=== PATIENT | male | born 1960 | race Caucasian/White ===

== ENCOUNTER → 2021-02-11 08:57 | Outpatient (CLI) | payer BC, SELFPAY ==
[2021-02-11 10:44] LABS: Magnesium 2.4 mg/dL (1.6-2.6)
--- NOTE | 2021-02-11 12:35 | HP.PCM_ITS ---
History and Physical History and Physical [facility], [place] Patient Name: Mustapha Lawson : 1960 From: DOROTEO SULLIVAN PA-C DATE OF SURGERY: 03/06/2021 SCHEDULED PROCEDURE: right total hip arthroplasty HISTORY OF PRESENT ILLNESS: Preoperative history and physical exam was performed on February 11, 2021. This is a 61-year-old male who has been having ongoing pain in the right hip for over 2 years. Pain can reach as high as an 8/10. Pain is been constant, aching, sharp, stabbing. Pain is increased with going up and down stairs and walking. Patient does have start up pain. Pain is located in the right buttock, lateral hip, groin and anterior thigh. An ice any numbness and tingling. He has difficulty with activities of daily living including getting dressed putting on his socks and leisure activities such as working out. He has tried heat with no relief in symptoms. He has tried oral medications including Tylenol with no relief in symptoms. Denies previous surgery on the right hip. After failing conservative measures and discussing all treatment options with Dr. Rk Landis, the patient does wish to proceed with a right total hip arthroplasty. We have obtain surgical clearance from the primary care physician Dr. Diamond. Patient denies any chest pain, shortness of breath, fevers chills, recent infections. Has medical history pertinent for acid reflux and hypertension. REVIEW OF SYSTEMS: ROS: Const: Reports weight change, but denies change in appetite and fever. CV: Denies chest pain, heart murmur and irregular heartbeat. Resp: Denies cough, pneumonia, shortness of breath, tuberculosis and wheezing. GI: Denies constipation, diarrhea, heartburn, nausea, rectal itching, bloody stools and vomiting. : Denies incontinence. Musculo: Reports gait disturbance, but denies leg swelling, pain, trouble walking and weakness. Skin: Denies Raynaud's, history of shingles and tattoo. Neuro: Denies ambulatory dysfunction, dizziness, numbness/tingling and tremor. Psych: Denies anxiety, insomnia and stress. Riley/Lymph: Denies anemia, bleeding/bruising tendency and past transfusion. Reviewed, no changes. PAST MEDICAL HISTORY: Advance Care Plan: PMH: Medical Problems: Acid Reflux, High Blood Pressure Accidents: None Surgical Hx: None Anesthesia Complications: None Assistive Devices: Glasses Reviewed, no changes. SOCIAL HISTORY: SH: Marital: .Occupation: [employer] - [employer].Work Status: Currently Working.Hand Dominance: Right-handed. Personal Habits: Cigarette Use: Never Smoked Cigarettes.Smokeless Tobacco: Never Used Smokeless Tobacco.E-Cigarette Use: Never used.Alcohol: Occasionally.Drug Use: Denies Use.Enjoy Exercising: Exercises 1-3 x/month. Reviewed, no changes. VITALS: Ht: 66 Wt: 227lb Wt k.967 BMI: 36.6 BP: 126/86 Pulse: 78 Resp: 14 T: 97.0 T: 36.1C Pain Level: 4 ALLERGIES: No Known Drug Allergy MEDICATIONS: Hydrochlorothiazide 12.5 mg 1 by mouth every day, Aspirin 81 81 mg 1 pill 2x/day by mouth, Omeprazole 10 mg 1po qday, Vitamin D-3 25 mcg (1000 Ut) 2 by mouth every day, Benadryl Allergy 25 mg 3 times daily x 2 weeks as needed PRE-OP EXAM: General appearance:NORMAL Other: Eyes: Conjunctivae and lids: NORMAL Pupils: ERR Ears, Nose, Mouth, and Throat: NORMAL Other: Inspection of lips, teeth and gums: NORMAL Other: Neck: Examination of neck: no masses noted. Respiratory: Assessment of respiratory effort: NORMAL Other: Auscultation of lungs: clear to auscultation no wheezes, rhonchi or rales. Cardiovascular: Auscultation of heart: regular rate and rhythm, no murmurs, gallops or rubs. PHYSICAL EXAMINATION: On exam patient does walk with an antalgic gait. Right hip is cool to touch without erythema or signs of infection. Patient has tenderness to palpation over the greater trochanteric region. Pain is increased with internal/external rotation. He has right hip flexion to approximately 45, internal rotation 5, external rotation 15 with increased pain. 3/5 strength on the right and 5/5 on the left. Sensation intact to light touch. 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 IMPRESSION: 1. Severe right hip osteoarthritis 2. Hypertension 3. Gastroesophageal reflux disease PLAN: Dr. Rk Landis did discuss and review with the patient all treatment options including surgical versus nonsurgical options. Patient does wish to proceed with the above-stated procedure. Potential risks, benefits, and complications of the procedure were discussed in detail including but not limited to , infection, nerve and blood vessel damage, persistent pain, numbness, tingling, paresthesias, blood clot, pulmonary embolism, and requirement for possible further surgery. The patient expressed full understanding and has no further questions for the doctor. Patient does agree to proceed with the above-stated procedure and has signed the surgery consent form. We discussed the current risks associated with COVID 19. This does include the risk of exposure while in the hospital. Patient was reassured local hospitals have low infection rates and are taking all necessary precautions to avoid exposure to patients. In addition, we discussed strategies that can be used to help limit exposure including those that limit the patient's time in the hospital. Also using strategies to limit the patient's need for continued inpatient services after being discharged from the hospital. Patient was notified that we will need to comply with any screening or testing the hospital wishes to perform or that surgery may be delayed for any positive results. This dictation was created using voice recognition software. Phonetic and/or grammatical errors may exist. ___ I have re-examined the patient. There are no clinical changes since date of exam. ___ See progress notes for changes. ___ Dictated on admission Date: Time: Signature:
== END ==
LOC: PAT 03-21 08:57
PROVIDERS: Anesthesiology; Referring Provider Specialist; Visit Provider Specialist
DX: Z01.818 Encounter for other preprocedural examination (principal)
CPT/HCPCS: 36415; 83735; 87081; J7120